=== PATIENT | female | born 1975 | race Caucasian/White ===

== ENCOUNTER 2025-02-05 13:11 | Outpatient (CLI) | payer OTHER, SELFPAY | END 2025-02-05 13:12 | disposition home or self-care (01) | LOC: INJ CL 13:16 | PROVIDERS: PCP Student in an Organized Health Care Education/Training Program; Visit Provider Family Medicine | DX: M54.16 Radiculopathy, lumbar region (principal); M51.369 Other intervertebral disc degeneration, lumbar region without mention of lumbar back pain or lower extremity pain | CPT/HCPCS: 62323; Q9966 ==